=== PATIENT | male | born 1930 | race Caucasian/White ===

== ENCOUNTER → 2017-06-11 | Outpatient (CLI) | payer MEDICARE, BC | END | disposition home or self-care (01) | LOC: PCVCCLINIC 11:16 | DX: I48.0 Paroxysmal atrial fibrillation (principal); I10 Essential (primary) hypertension; E78.5 Hyperlipidemia, unspecified; Z79.899 Other long term (current) drug therapy; Z87.891 Personal history of nicotine dependence | CPT/HCPCS: 93005; G0463 ==

== ENCOUNTER → 2017-10-01 | Outpatient (CLI) | payer MEDICARE, BC | END | disposition home or self-care (01) | LOC: PCVCCLINIC 11:19 | DX: E78.5 Hyperlipidemia, unspecified (principal); I48.0 Paroxysmal atrial fibrillation; I10 Essential (primary) hypertension; Z79.899 Other long term (current) drug therapy; Z87.891 Personal history of nicotine dependence | CPT/HCPCS: 80061 ==

== ENCOUNTER → 2018-04-01 | Outpatient (CLI) | payer MEDICARE, BC | END | disposition home or self-care (01) | LOC: PCVCCLINIC 12:37 | PROVIDERS: ATTEND Internal Medicine | DX: I48.0 Paroxysmal atrial fibrillation (principal); I35.0 Nonrheumatic aortic (valve) stenosis; R94.31 Abnormal electrocardiogram [ECG] [EKG]; E78.5 Hyperlipidemia, unspecified; I10 Essential (primary) hypertension; R60.0 Localized edema; Z79.899 Other long term (current) drug therapy; Z87.891 Personal history of nicotine dependence; Z72.89 Other problems related to lifestyle | CPT/HCPCS: 80061; 93005; G0463 ==

== ENCOUNTER → 2018-04-08 | Outpatient (CLI) | payer MEDICARE, BC ==
--- NOTE | 2018-04-08 14:36 | PCVCIMAG ---
APPROVED REPORT Study performed: 04/08/2018 11:15:12 EXAM: Comprehensive 2D, Doppler, and color-flow Echocardiogram Patient Location: Echo lab Status: routine BSA: 2.09 HR: 57 bpmBP: 174/84 mmHg Rhythm: Bradycardia Other Information Study Quality: Technically Limited Technically limited study due to inability to position patient/ patient in wheelchair. Indications aortic stenosis, paroxysmal a fib 2D Dimensions IVSd: 15.97 (7-11mm)LVOT Diam: 21.71 (18-24mm) LVDd: 35.59 mm PWd: 15.83 (7-11mm)Ascending Ao: 37.91 (22-36mm) LVDs: 32.19 (25-40mm) Left Atrium: 48.56 (27-40mm) Aortic Root: 38.06 mm LV Single Plane 4CH: 44.72 % LV Single Plane 2CH: 43.45 % Biplane EF: 42.2 % Volumes Left Atrial Volume (Systole) Single Plane 4CH: 66.89 mLSingle Plane 2CH: 76.64 mL LA ESV Index: 38.00 mL/m2 Aortic Valve AoV Peak Solo.: 2.48 m/s AO Peak Gr.: 24.63 mmHgLVOT Max P.73 mmHg AO Mean Gr.: 12.79 mmHgLVOT Mean P.17 mmHg AO V2 Mean: 1.65 m/sLVOT Max V: 1.30 m/s AO V2 VTI: 49.63 cm TOBIN (VTI): 1.95 [id number] V1 VTI: 26.15 cm TOBIN Vmax: 1.93 cm2 Mitral Valve E/A Ratio: 0.6 MV Decel. Time: 363.93 ms MV E Max Solo.: 0.65 m/s MV A Solo.: 1.04 m/s MV PHT: 105.54 ms Pulmonary Valve PV Peak Solo.: 0.87 m/sPV Peak Gr.: 3.06 mmHg Tricuspid Valve TR Peak Solo.: 2.26 m/s TR Peak Gr.: 20.45 mmHg Left Ventricle The left ventricle is normal size. There is normal LV segmental wall motion. Moderate concentric left ventricular hypertrophy. Left ventricular systolic function is normal. The left ventricular ejection fraction is within the normal range. LVEF is 50-55%. The left ventricular diastolic function is normal. Right Ventricle The right ventricle is normal size. The right ventricular systolic function is normal. Atria Left atrium is moderately dilated. The right atrium size is mildly dilated. Aortic Valve The aortic valve is moderately sclerotic. No aortic regurgitation is present. There is mild valvular aortic stenosis. Calculated aortic valve area is 1.9 cm2 with maximum pressure gradient of 25 mmHg and mean pressure gradient of 13 mmHg. Mitral Valve The mitral valve is normal in structure. Mild to moderate, eccentric mitral regurgitation. No evidence of mitral valve stenosis. Tricuspid Valve The tricuspid valve is normal in structure. Trace tricuspid regurgitation with PAP of 27 mmHg. Pulmonic Valve The pulmonary valve is normal in structure. Trace pulmonic regurgitation. Great Vessels The aortic root is upper limits of normal in size, 3.8 cm. IVC is normal in size and collapses >50% with inspiration. Pericardium There is no pericardial effusion. There is no pleural effusion. <Conclusion> The left ventricle is normal size. LVEF is 50-55%. Left atrium is moderately dilated. The right atrium size is mildly dilated. The aortic valve is moderately sclerotic. No aortic regurgitation is present. There is mild valvular aortic stenosis. Calculated aortic valve area is 1.9 cm2 with maximum pressure gradient of 25 mmHg and mean pressure gradient of 13 mmHg. The mitral valve is normal in structure. Mild to moderate, eccentric mitral regurgitation. The tricuspid valve is normal in structure. Trace tricuspid regurgitation with PAP of 27 mmHg. The pulmonary valve is normal in structure. Trace pulmonic regurgitation. There is no pericardial effusion.
== END | disposition home or self-care (01) ==
LOC: PCVCIMAG 09:58
PROVIDERS: ATTEND Internal Medicine
DX: I48.0 Paroxysmal atrial fibrillation (principal); I35.0 Nonrheumatic aortic (valve) stenosis
CPT/HCPCS: 93306

== ENCOUNTER → 2018-09-30 | Outpatient (CLI) | payer MEDICARE, BC | END | disposition home or self-care (01) | LOC: PCVCCLINIC 11:00 | PROVIDERS: ATTEND Internal Medicine | DX: I35.0 Nonrheumatic aortic (valve) stenosis (principal); I48.0 Paroxysmal atrial fibrillation; I10 Essential (primary) hypertension; E78.5 Hyperlipidemia, unspecified; R60.0 Localized edema; Z87.891 Personal history of nicotine dependence | CPT/HCPCS: 36415; 80061 ==